=== PATIENT | female | born 1965 | race Caucasian/White ===

== ENCOUNTER 2018-04-11 06:57 | Outpatient (CLI) | payer MEDICARE | END 2018-04-11 06:58 | disposition home or self-care (01) | LOC: C.PAT 06:57 | DX: Z12.11 Encounter for screening for malignant neoplasm of colon (principal) ==

== ENCOUNTER 2018-05-16 07:11 | Outpatient (CLI) | payer MEDICARE, OTHER | END 2018-05-16 07:12 | disposition home or self-care (01) | LOC: C.USIC 07:11 | DX: I67.2 Cerebral atherosclerosis (principal) ==

== ENCOUNTER 2018-05-23 06:48 | Outpatient (CLI) | payer MEDICARE, MEDICAID, OTHER | END 2018-05-23 06:49 | disposition home or self-care (01) | LOC: C.CARD 06:48 | DX: I25.41 Coronary artery aneurysm (principal) ==